=== PATIENT | male | born 1940 | race Caucasian/White ===

== ENCOUNTER → 2016-04-06 | Day surgery (SDC) | payer BC, MEDICARE ==
[~2016-04-06] MED LIST: BELLADONNA ALKALOIDS/OPIUM 60 MG SUPP ONE; GENTAMICIN SULFATE 80 MG/2 ML VIAL ONE; LACTATED RINGER'S 1000 ML INJ 1,000 ML ONE; MIDAZOLAM HCL 2 MG/2 ML VIAL ONE; ONDANSETRON HCL 4 MG/2 ML VIAL IV PUSH ONE; PROPOFOL 200 MG/20 ML AMP IV ONE; SODIUM CHLORIDE 0.9% SOLN 100 ML BAG IV ONE; ceFAZolin INJ 1,000 MG VIAL ONE
--- NOTE | 2016-04-06 10:17 | TN ---
cc: MAKI CARPENTER M.D. DATE OF SURGERY: 04/06/2016 PREOPERATIVE DIAGNOSIS Lower urinary tract symptoms secondary to benign prostatic hyperplasia (ICD-10 code N40.1). POSTOPERATIVE DIAGNOSIS Lower urinary tract symptoms secondary to benign prostatic hyperplasia (ICD-10 code N40.1). PROCEDURE Transurethral vaporization of the prostate (TUVP), using the PlasmaButton (CPT code 94358). INDICATION Mr. Cleveland is a 75-year-old gentleman who failed pharmacologic intervention for his lower urinary tract symptoms secondary to BPH and requesting transurethral resection or vaporization of the prostate. The patient is on chronic multidrug blood thinners, specifically aspirin and Eliquis. FINDINGS Normal anterior urethra. The posterior urethra shows bilobular hyperplasia with moderate obstruction slightly coapting the lateral lobes. The bladder itself shows some moderate trabeculation, no diverticula or cellules. There are no dayana tumors, abnormal mucosa or calcifications identified. The ureteral orifice is normal size, shape and position, effluxing clear urine bilaterally. DETAILS OF PROCEDURE The procedure as well as risks and benefits were explained to the patient. Informed consent was obtained. The patient was taken to the major operative theatre where he was placed in the supine position. The patient was identified as well as the operative site. A universal timeout was performed in the standard fashion. At this time general anesthetic and prophylactic intravenous antibiotics consisting of gentamicin 80 mg and Ancef one gram was administered. After adequate anesthetic the patient was then placed in the low dorsal lithotomy position, prepped and draped in the usual sterile fashion. At this time a 22.5 Portuguese cystoscope with a 30 degree lens was inserted into the urethra and bladder and the entire bladder was systematically surveyed. At this time a decision was made to perform transurethral vaporization of the prostate using the gyrus system and the PlasmaButton due to the patient's significant anticoagulation and the size of his gland and the vascularity of the prostate itself. At this time the cystoscope was removed and under direct vision a 27 Portuguese [place] resectoscope with a PlasmaButton was inserted. Using normal saline transurethral vaporization of the prostate was performed in the standard fashion, first circumferentially at the bladder neck and then more proximally. Care was taken not to vaporize proximal to the distal verumontanum. After an adequate channel was made and hemostasis was confirmed and there was no incidental damage to the urethral sphincter or the bladder itself, the bladder was filled and the resectoscope removed. Pressure was placed on the dome of the bladder. The patient had an excellent stream. A 20 Portuguese three-way hematuria catheter with the irrigation port capped was placed with 30 cc of sterile water insufflated into the balloon and placed to straight drain. A belladonna and opioid suppository was placed. The patient was placed back in the supine position and emerged from anesthetic without difficulty. The patient was transferred to Recovery in stable condition to be discharged home when criteria is met. There were no obvious complications. MD LORA Leonard/NICOLA /9:56 AM /10:06 AM [email or web address]
== END | disposition home or self-care (01) ==
LOC: ESDC 06:27
PROVIDERS: ATTEND Urology
DX: N40.1 Benign prostatic hyperplasia with lower urinary tract symptoms (principal)
CPT/HCPCS: 00914; 52601; J0690; J1580; J2250; J2405; J3010; J7120